=== PATIENT | male | born 1985 | race African-American/Black ===

== ENCOUNTER 2019-06-18 01:38 | Inpatient (IN) | payer OTHER ==
[~2019-06-18] VITALS: Ht 170.2 cm; Wt 80.7 kg
[2019-06-18] VITALS (14 sets, daily range): BP systolic 113–143; BP diastolic 72–88
--- NOTE | 2019-06-18 01:42 | NUR ---
TO BED 4 BIB PARAMEDICS C/O NONRADIATING CP X4HRS MATCHER. PT AAO X4 NO ACUTE DISTRESS NOTED, RESP EVEN AND UNLABORED. SKIN WARM, NONDIAPHORETIC. PLACE PT ON CARDIAC MONITORING, CONTINUOUS POX. PENDING ER MD BOSE.
[2019-06-18] MEDS ORDERED: KETOROLAC TROMETHAMINE INJ 60 MG/2 ML VIAL IM ONE ×2 (02:00→02:01)
--- NOTE | 2019-06-18 02:06 | NUR ---
PT MEDICATED ORDERED.
[2019-06-18 02:39] LABS: CALCIUM, SERUM 8.3 mg/dL (8.5-10.1); CARBON DIOXIDE 28 mmol/L (21-32); CHLORIDE 104 mmol/L (98-107); CREATININE 1.1 mg/dL (0.6-1.3); GLUCOSE 90 mg/dL (74-106); POTASSIUM 4.1 mmol/L (3.5-5.1); SODIUM SERUM 136 mmol/L (136-145); UREA NITROGEN, BLOOD 9 mg/dL (7-18)
[2019-06-18 02:41] LABS: BASOPHILS % (AUTO) 0.7 % (0.0-2.0); EOSINOPHILS % (AUTO) 3.2 % (0.0-6.0); LYMPHOCYTES # (AUTO) 1.6 /CMM (0.8-4.8); LYMPHOCYTES % (AUTO) 26.7 % (20.0-44.0); MEAN CORPUSCULAR HGB CONC 30 g/dl (31.0-36.0); MEAN CORPUSCULAR VOLUME 60 fL (80-96); MONOCYTES # (AUTO) 0.4 /CMM (0.1-1.30); MONOCYTES % (AUTO) 6.2 % (2.0-12.0); NEUTROPHILS # (AUTO) 3.8 /CMM (1.8-8.9); NEUTROPHILS % (AUTO) 63.2 % (43.0-81.0); PLATELET COUNT (AUTO) 369 /CMM (150-450); RED BLOOD CELL COUNT(AUTO) 3.37 MIL/uL (4.5-6.0); WHITE BLOOD COUNT (AUTO) 6.1 K/uL (4.3-11.0)
[2019-06-18 02:42] LABS: HEMATOCRIT 20 % (39-51)
[2019-06-18 02:45] LABS: HEMOGLOBIN 6.1 g/dL (13.5-17.5)
--- NOTE | 2019-06-18 02:45 | NUR ---
NOW PT REPORTS THAT HE HAS BEEN HAVING BLOODY BM FOR MONTHS NOW BUT HE FORGOT TO LET THE DOCTOR KNOW. ER MD AT BEDSIDE TALKING TO PT WITH ADDITIONAL ORDERS RECEIVED.
[2019-06-18 02:57] LABS: EOSINOPHILS % (MANUAL) 4 % (0-4); LYMPHOCYTES % (MANUAL) 28 % (16-48); MONOCYTES % (MANUAL) 6 % (0-11.0); NEUTROPHILS % (MANUAL) 62 (42-76)
[2019-06-18] MEDS ORDERED: IOHEXOL-350 100 ML VIAL IV ONE ×3 (03:02→03:41)
[2019-06-18] MEDS ORDERED: CT SWABBABLE VALVE TRANS SET 1 EA INFUS.SET MC ONE (03:02)
[2019-06-18] MEDS ORDERED: IV NS 0.9% 250 ML IV ONE (03:03)
--- NOTE | 2019-06-18 03:18 | NUR ---
PT TRANSPORTED TO RADIOLOGY FOR CT PULMONARY ANGIOGRAM.
[2019-06-18] MEDS ORDERED: MAG HYDROX/AL HYDROX/SIMETH 30 ML UDC PO PRN (04:00)
[2019-06-18] MEDS ORDERED: MAGNESIUM HYDROXIDE 30 ML UDC PO PRN (04:00)
[2019-06-18] MEDS ORDERED: PANTOPRAZOLE 40 MG VIAL IV SCH (04:00)
[2019-06-18] MEDS ORDERED: ACETAMINOPHEN 325 MG TABLET PO PRN (04:00)
[2019-06-18] MEDS ORDERED: Z GUARD REMEDY 2 OZ OINT TP PRN (04:00)
[2019-06-18] MEDS ORDERED: ONDANSETRON HCL/PF 4 MG/2 ML VIAL IVP PRN (04:00)
--- NOTE | 2019-06-18 04:34 | NUR ---
CT PULMONARY ANGIOGRAM RESULT RECEIVED. SARAH PRITCHETT MADE AWARE.
--- NOTE | 2019-06-18 04:40 | NUR ---
REPORT CALLED TO M/S SHARIF PATTEN. WILL TRANSPORT PT TO ROOM 108
--- NOTE | 2019-06-18 04:45 | NUR ---
RN OPENING NOTES: RECIEVED PT A0 TIMES 4 AMBULATORY. REPORTED TO MD ACTIVE BLEEDING FROM STOOL FOR OVER FOUR WEEKS. WAS RECENTLY DIAGNOSED WITH CHRONS IN DECEMBER ACCORDING TO PT. NO COMPLAINTS OF PAIN. VITAL SIGNS STABLE. PT SATTING WELL ON ROOM AIR. REPORT GIVEN BY ER OF LOW H AND H OF 6.. CONSET SIGNS FOR TWO UNITS OF RBC AND STARTED TRANSFUSION AT 0530. PT CURRENTLY SLEEPING. WILL CONTINUE TO MONITER AND CARRY OUT PLAN OF CARE. BED IN LOCKED LOW POSITION. SAFETY MEASURES IN PLACE.
--- NOTE | 2019-06-18 06:49 | NUR ---
RN CLOSING MED JOSUE NOTES: PT IN BED SLEEPING IN STABLE CONDITION. RBC CURRENTLY RUNNING AT 80 ML/HR. WILL ENDORSE TO AM SHIFT. PROTONIX 0400 NOT GIVEN DUE TO NOT BEING IN STOCK. WILL ENDORSE TO JOHN TO GIVE AND MONITER PT AND CONTINUE PLAN OF CARE. SAFETY. MEASURES IN PLACE. CALL LIGHT WITHIN REACH
--- NOTE | 2019-06-18 07:35 | NUR ---
MS/RN OPENING NOTES RECEIVED PATIENT IN BED RESTING COMFORTABLY. EASILY AROUSABLE. PATIENT IS ALERT AND ORIENTED X3. NO PAIN OR ACUTE DISTRESS AT THIS TIME. RESPIRATION EVEN AND UNLABORED. SKIN IS DRY WARM TO TOUCH. PATIENT NOTED WITH BLOOD INFUSING AT THE MOMENT. PATIENT TOLERATING THE INFUSION WELL. IV ACCESS ON LAC INTACT AND PATENT. NO S/S OF INFILTRATION OR INFECTION. FLUSHING WELL. ALL NEEDS ANTICIPATED. CALL LIGHT WITHIN REACHED. BED LOCKED AND IN LOWEST POSITION. SAFETY MAINTAINED. WILL CONTINUE TO MONITOR.
[2019-06-18] MEDS ORDERED: LAMO200T2 PO (08:01)
[2019-06-18] MEDS: NEXIUM 40 MG VIAL IV SCH ×2 (09:08→20:00)
--- NOTE | 2019-06-18 09:20 | NUR ---
MS/RN NOTES BLOOD TRANSFUSION WAS FINISHED. PATIENT TOLERATED THE INFUSION WELL. NO ADVERSE REACTIONS AT THIS TIME. PATIENT REMAINS IN STABLE CONDITION. WILL CONTINUE TO MONITOR PATIENT CLOSELY.
[2019-06-18 12:03] LABS: HEMOGLOBIN 6.9 g/dL (13.5-17.5)
--- NOTE | 2019-06-18 12:10 | NUR ---
MS/RN NOTES SPOKE TO DR. LAZCANO REGARDING PATIENT. ACCORDING TO DR. LAZCANO HE IS PLANNING TO HAVE HIM GO FOR EGD AND COLONOSCOPY ON FRIDAY. I PROVIDED DR. LAZCANO WITH THE FACESHEET AND INSURANCE INFORMATION ALONG WITH HIS RECENT LAB RESULTS OF H AND H. AWAITING FOR ORDERS.
--- NOTE | 2019-06-18 13:03 | NUR ---
MS/RN NOTES PAGED DR. STEPHEN VIA [employer] PHONE NUMBER.
--- NOTE | 2019-06-18 13:40 | NUR ---
MS/RN NOTES RECEIVED A CALL BACK FROM DR. STEPHEN RELAYED HGB OF 6.9 AND ALSO THE EKG RESULTS DUE TO PATIENT HAVING NON RADIATING CHEST PAIN. ORDERED TO ADMINISTER PRBC. ALSO, INFORMED HIM ABOUT DR. VASQUES PLAN FOR THE PATIENT REGARDING THE EGD AND COLONOSCOPY. PATIENT REMAINS IN STABLE CONDITION. WILL CONTINUE TO MONITOR CLOSELY.
--- NOTE | 2019-06-18 15:25 | NUR ---
MS/RN NOTES STARTED BLOOD TRANSFUSION, VERIFIED WITH ANOTHER RN. WILL CONTINUE TO VISUALLY CHECK PATIENT TO CHECK FOR ANY ADVERSE REACTIONS.
--- NOTE | 2019-06-18 15:26 | NUR ---
MS/RN NOTES SPOKE TO CASE MANAGEMENT REGARDING DR. STEPHEN CONCERN ABOUT THE EGD AND COLONOSCOPY THAT IS BEING SCHEDULED BY DR. LAZCANO ON FRIDAY. ACCORDING TO CASE MANAGEMENT THEY WILL FOLLOW UP.
--- NOTE | 2019-06-18 18:38 | NUR ---
MS/RN NOTES PATIENT REMAINED IN STABLE CONDITION THROUGHOUT THE SHIFT. PROVIDED SAFETY AND COMFORT. BLOOD TRANSFUSION WAS FINISHED. SPOKE TO DR. STEPHEN AND HE ORDERED TO DO ANOTHER H AND H STAT. ALL ORDERS NOTED AND CARRIED OUT. NO PAIN OR ACUTE DISTRESS AT THIS TIME. WILL CONTINUE TO MONITOR CLOSELY.
--- NOTE | 2019-06-18 19:35 | NUR ---
MS/RN CLOSING NOTES PATIENT REMAINED IN STABLE CONDITION THROUGHOUT THE SHIFT. PROVIDED SAFETY AND COMFORT. NO PAIN OR ACUTE DISTRESS AT THIS TIME. RESPIRATION EVEN AND UNLABORED. SKIN IS DRY WARM TO TOUCH. IV ACCESS ON LAC INTACT AND PATENT. FLUSHING WELL. PATIENT WAS SEEN AND EVALUATED BY DR. LAZCANO WITH ORDERS TO DO EGD AND COLONOSCOPY ON Friday06/21/19. ALSO, PATIENT NEEDS TO BE NPO FRIDAY MIDNIGHT WITH COLON PREP. ALL NEEDS ANTICIPATED. CALL LIGHT WITHIN REACHED. WILL CONTINUE TO MONITOR. ENDORSED TO PM NURSE CELWYN REGARDING THE PROCEDURES.
[2019-06-18 20:15] LABS: HEMOGLOBIN 8.1 g/dL (13.5-17.5)
[2019-06-18] MEDS: IV NS 0.9% 1,000 ML IV PRN (21:02)
[2019-06-19 04:15] VITALS: BP 140/80
[2019-06-19 07:03] LABS: CALCIUM, SERUM 8.7 mg/dL (8.5-10.1); CREATININE 1.1 mg/dL (0.6-1.3); MAGNESIUM 1.9 mg/dL (1.8-2.4); PHOSPHORUS 3.9 mg/dL (2.5-4.9); POTASSIUM 3.9 mmol/L (3.5-5.1)
[2019-06-19 07:06] LABS: BASOPHILS % (AUTO) 0.4 % (0.0-2.0); EOSINOPHILS % (AUTO) 3.8 % (0.0-6.0); HEMATOCRIT 28 % (39-51); HEMOGLOBIN 8.7 g/dL (13.5-17.5); LYMPHOCYTES # (AUTO) 1.3 /CMM (0.8-4.8); LYMPHOCYTES % (AUTO) 26.2 % (20.0-44.0); MEAN CORPUSCULAR HGB CONC 31 g/dl (31.0-36.0); MEAN CORPUSCULAR VOLUME 64 fL (80-96); MONOCYTES # (AUTO) 0.6 /CMM (0.1-1.30); NEUTROPHILS # (AUTO) 2.8 /CMM (1.8-8.9); NEUTROPHILS % (AUTO) 57.6 % (43.0-81.0); PLATELET COUNT (AUTO) 383 /CMM (150-450); RED BLOOD CELL COUNT(AUTO) 4.37 MIL/uL (4.5-6.0); WHITE BLOOD COUNT (AUTO) 4.8 K/uL (4.3-11.0)
--- NOTE | 2019-06-19 07:07 | NUR ---
RN NOTES AWAKE, ALERT AND ORIENTED. VERBALLY ABLE TO COMMUNICATE NEEDS. AMBULATORY. IN NO APPARENT DISTRESS, BREATHING EVEN AND UNLABORED TOLERATING ROOM AIR WELL. NO COMPLAINT OF PAIN OR DISCOMFORT. NOTED WITH MODERATE AMOUNT OF BLOOD IN STOOL. FOR EGD AND COLONOSCOPY ON FRIDAY, GOLYTELY TO START ON FRIDAY. KEPT CLEAN AND DRY. WILL ENDORSE TO NEXT SHIFT FOR CONTINUITY OF CARE.
[2019-06-19 08:00] VITALS: BP 137/74
[2019-06-19] MEDS: NEXIUM 40 MG VIAL IV SCH ×2 (09:38→20:34)
[2019-06-19] MEDS ORDERED: LIDOCAINE 1% INJ 50 ML MDV IJ STA (12:20)
[2019-06-19 16:00] VITALS: BP 122/69
[2019-06-19] MEDS: IV NS 0.9% 1,000 ML IV PRN (16:08)
[2019-06-19 16:15] VITALS: BP 137/74
[2019-06-19] MEDS: LamoTRIgine 100 MG TABLET PO SCH ×2 (16:33→20:37)
--- NOTE | 2019-06-19 19:29 | NUR ---
ms rn end of shift notes pt stable, visitors at bedside. still with c/o blood in stool. hgb stable. on regular diet. will endorse to pm nurse for stephanie.
[2019-06-19 23:24] VITALS: BP 132/81
[2019-06-20] VITALS (8 sets, daily range): BP systolic 116–145; BP diastolic 68–84
--- NOTE | 2019-06-20 04:17 | NUR ---
RECIEVED PT FROM [facility] WILL CONTINUE TO MONITOR.
--- NOTE | 2019-06-20 06:47 | NUR ---
MS/RN CLOSING NOTES: PATIENT REMAINED IN STABLE CONDITION THROUGHOUT THE SHIFT. PROVIDED SAFETY AND COMFORT. BLOOD TRANSFUSION WAS FINISHED. SPOKE TO DR. STEPHEN AND HE ORDERED TO DO ANOTHER H AND H STAT. REPORTED DIAHERRA TIMES THREE.SAFETY PRECATIONS IN PLACE. WILL ENDORSE TO AM SHIFT. Addendum: 06/20/19 at 0718 by BRANT BAINS RN /RN CLOSING NOTES: PATIENT REMAINED IN STABLE CONDITION THROUGHOUT THE SHIFT. PROVIDED SAFETY AND COMFORT. NPO AT MIDNIGHT FRIDAY FOR EGD AND COLONOSCOPY ON FRIDAY, CONSENT PEND. GOLTLY START 06/20. CT PULMONARY ANGIOGRAM PENDING. REPORTED DIAHERRA TIMES THREE.SAFETY PRECATIONS IN PLACE. WILL ENDORSE TO AM SHIFT
[2019-06-20 07:10] LABS: BASOPHILS % (AUTO) 0.4 % (0.0-2.0); EOSINOPHILS % (AUTO) 3.3 % (0.0-6.0); HEMATOCRIT 26 % (39-51); HEMOGLOBIN 8.1 g/dL (13.5-17.5); LYMPHOCYTES # (AUTO) 1.2 /CMM (0.8-4.8); LYMPHOCYTES % (AUTO) 22.4 % (20.0-44.0); MEAN CORPUSCULAR HGB CONC 31 g/dl (31.0-36.0); MEAN CORPUSCULAR VOLUME 64 fL (80-96); MONOCYTES # (AUTO) 0.7 /CMM (0.1-1.30); MONOCYTES % (AUTO) 12.4 % (2.0-12.0); NEUTROPHILS # (AUTO) 3.4 /CMM (1.8-8.9); NEUTROPHILS % (AUTO) 61.5 % (43.0-81.0); PLATELET COUNT (AUTO) 372 /CMM (150-450); RED BLOOD CELL COUNT(AUTO) 4.07 MIL/uL (4.5-6.0); WHITE BLOOD COUNT (AUTO) 5.5 K/uL (4.3-11.0)
[2019-06-20 07:12] LABS: CALCIUM, SERUM 8.1 mg/dL (8.5-10.1); CREATININE 1.1 mg/dL (0.6-1.3); POTASSIUM 3.8 mmol/L (3.5-5.1)
--- NOTE | 2019-06-20 08:00 | NUR ---
RN NOTES SEEN PATIENT IN THE BED A/O X4. PATIENT HAS NO ACUTE RESPIRATORY DISTRESS, V/S TAKEN STABLE, PATIENT AMBULATORY, SELF CARE. PATIENT FREE OF SEIZURE PRECAUTION. 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 WAS COMPLAINING OF PAIN IN LOWER BACK. NEEDS ATTENDED AND ANTICIPATED. CALL LIGHT WITHIN TO REACH, CONTINUED MONITORING.
[2019-06-20] MEDS: LamoTRIgine 100 MG TABLET PO SCH ×2 (08:54→22:49)
[2019-06-20] MEDS: HYDROCODONE/APAP 5/325MG 1 EACH TABLET PO PRN ×2 (08:54→13:33)
--- NOTE | 2019-06-20 08:54 | NUR ---
RN NOTES ADMINISTERED NARCO 5/325 MG PO PRN FOR LOWER BACK PAIN 07/10 PER PATIENT REQUEST V/S TAKEN BP -129/68, P-73. ALSO ADMINISTERED SCHEDULED MEDICATION. CALL LIGHT WITHIN TO REACH, CONTINUED MONITORING.
[2019-06-20 09:09] LABS: EOSINOPHILS % (MANUAL) 6 % (0-4); LYMPHOCYTES % (MANUAL) 24 % (16-48); MONOCYTES % (MANUAL) 11 % (0-11.0); NEUTROPHILS % (MANUAL) 59 (42-76)
[2019-06-20] MEDS: NEXIUM 40 MG VIAL IV SCH ×2 (09:13→22:57)
--- NOTE | 2019-06-20 13:33 | NUR ---
RN NOTES ADMINISTERED NARCO 5/325 MG PO PRN, AND ZOFRAN 4 MG/ML IV PUSH FOR NAUSEA, V/S TAKEN BP-133/76, P-71. FRIEND NEXT TO THE BED. CONTINUED MONITORING.
--- NOTE | 2019-06-20 18:30 | NUR ---
RN NOTES PATIENT STABLE MEDICATION WERE ADMINISTERED FOR PAIN, AND NAUSEA EFFECTIVE, PATIENT TAKE A SHOWER, PATIENT AMBULATORY SELF CARE. CALL LIGHT WITHIN TO REACH, PATIENT SIGN CONSENT FORM. CALL LIGHT WITHIN TO REACH. FAMILY NEXT TO THE BED. ENDORSED ONCOMING NURSE FOLLOW PLAN OF CARE.
[2019-06-20] MEDS ORDERED: PEG 3350/NA SULF,BICARB,CL/KCL 4,000 ML BOTTLE PO ONE (20:00)
[2019-06-21 04:00] VITALS: BP 117/60
[2019-06-21] MEDS: IV NS 0.9% 1,000 ML IV PRN ×2 (05:41→20:39)
--- NOTE | 2019-06-21 06:05 | NUR ---
RN NOTES ALERT AND ORIENTED, AMBULATORY, VERBALLY ABLE TO COMMUNICATE NEEDS. NO COMPLAINT OF PAIN OR DISCOMFORT. IN NO APPARENT DISTRESS, BREATHING EVEN AND UNLABORED. ROOM AIR TOLERATED WELL. NPO MIDNIGHT FOR EGD AND COLONOSCOPY IN AM. STARTED TO DRINK GOLYTELY AT 1999, PATIENT IS COMPLAINING OF BLURRED VISION AFTER DRINKING ABOUT 2L OF GOLYTELY. CONSENT SIGNED, IN THE CHART. KEPT CLEAN AND DRY. WILL ENDORSE TO AM SHIFT FOR CONTINUITY OF CARE. Addendum: 06/21/19 at 0631 by MAYRA BALLARD RN BOWEL MOVEMENT X 5, STILL WITH SCANT BLEEDING NOTED.
[2019-06-21 06:35] LABS: BASOPHILS # (AUTO) 0.1 /CMM (0.0-0.2); BASOPHILS % (AUTO) 1.6 % (0.0-2.0); EOSINOPHILS % (AUTO) 4.8 % (0.0-6.0); HEMATOCRIT 28 % (39-51); HEMOGLOBIN 8.5 g/dL (13.5-17.5); LYMPHOCYTES # (AUTO) 1.2 /CMM (0.8-4.8); MEAN CORPUSCULAR HGB CONC 30 g/dl (31.0-36.0); MEAN CORPUSCULAR VOLUME 64 fL (80-96); MONOCYTES # (AUTO) 0.6 /CMM (0.1-1.30); MONOCYTES % (AUTO) 13.8 % (2.0-12.0); NEUTROPHILS # (AUTO) 2.3 /CMM (1.8-8.9); NEUTROPHILS % (AUTO) 52.8 % (43.0-81.0); PLATELET COUNT (AUTO) 383 /CMM (150-450); RED BLOOD CELL COUNT(AUTO) 4.35 MIL/uL (4.5-6.0); WHITE BLOOD COUNT (AUTO) 4.4 K/uL (4.3-11.0)
[2019-06-21 06:57] LABS: ALBUMIN 2.7 g/dL (3.4-5.0); BILIRUBIN,TOTAL 0.2 mg/dL (0.2-1.0); CALCIUM, SERUM 8.8 mg/dL (8.5-10.1); CREATININE 1.2 mg/dL (0.6-1.3); PHOSPHORUS 4.2 mg/dL (2.5-4.9); POTASSIUM 3.5 mmol/L (3.5-5.1); TOTAL PROTEIN, SERUM 8.3 g/dL (6.4-8.2)
--- NOTE | 2019-06-21 07:30 | NUR ---
RN MS NOTES Received patient on room air, no sob noted, patient denies pain at this time. No discomfort stated by the patient. Patient remains a/o x4, EGD later on. Bed at the lowest setting, call light within reach.
[2019-06-21 08:00] VITALS: BP 128/73
[2019-06-21] MEDS: LamoTRIgine 100 MG TABLET PO SCH ×2 (08:37→20:09)
[2019-06-21] MEDS: NEXIUM 40 MG VIAL IV SCH ×2 (08:37→20:09)
[2019-06-21 08:39] LABS: BAND % (MANUAL) 1 % (0.0-5.0); BASOPHILS % (MANUAL) 1 % (0.0-2.0); EOSINOPHILS % (MANUAL) 5 % (0-4); LYMPHOCYTES % (MANUAL) 28 % (16-48); MONOCYTES % (MANUAL) 13 % (0-11.0); NEUTROPHILS % (MANUAL) 52 (42-76)
--- NOTE | 2019-06-21 09:54 | NUR ---
RN MS NOTES Patient taken to surgery at this time
[2019-06-21 16:00] VITALS: BP 128/71
--- NOTE | 2019-06-21 18:16 | NUR ---
RN MS CLOSING NOTES Patient remains on room air, no sob noted, patient remains a/o x4. Ambulatory and BRP with good gait. GIOVANNA midline with NS @ 75mL per hour. Flowing and unobstructed. Patient tolerating soft diet at this time. Patient denies pain at this time. Bed at the lowest setting, call light within reach. Will give report to NOC RN for EUGENIE bedside.
--- NOTE | 2019-06-21 19:35 | NUR ---
RN OPENING NOTES RECEIVED PATIENT AWAKE, RESTING COMFORTABLY IN BED. PATIENT IS A/O X 4. PATIENT ABLE TO STATE NEEDS. GIOVANNA MIDLINE WITH NS @75 ML PER HOUR. NO SIGNS OF INFILTRATION OR OBSTRUCTION NOTED. SAFETY PRECAUTIONS IMPLEMENTED; CALL LIGHT WITHIN REACH, BED LOWEST POSITION, BED LOCKED, SIDE RAILS UP X2. WILL CONTINUE TO MONITOR PATIENT THROUGHOUT THE SHIFT.
[2019-06-21 20:00] VITALS: BP 134/76
[2019-06-21] MEDS: HYDROCODONE/APAP 5/325MG 1 EACH TABLET PO PRN (20:12)
[2019-06-22 04:00] VITALS: BP 122/79
[2019-06-22 06:25] LABS: BASOPHILS % (AUTO) 0.4 % (0.0-2.0); HEMATOCRIT 26 % (39-51); HEMOGLOBIN 7.9 g/dL (13.5-17.5); LYMPHOCYTES % (AUTO) 24.7 % (20.0-44.0); MEAN CORPUSCULAR HGB CONC 31 g/dl (31.0-36.0); MEAN CORPUSCULAR VOLUME 64 fL (80-96); MONOCYTES # (AUTO) 0.6 /CMM (0.1-1.30); MONOCYTES % (AUTO) 13.6 % (2.0-12.0); NEUTROPHILS # (AUTO) 2.3 /CMM (1.8-8.9); NEUTROPHILS % (AUTO) 57.3 % (43.0-81.0); PLATELET COUNT (AUTO) 325 /CMM (150-450); RED BLOOD CELL COUNT(AUTO) 3.99 MIL/uL (4.5-6.0); WHITE BLOOD COUNT (AUTO) 4.1 K/uL (4.3-11.0)
--- NOTE | 2019-06-22 06:42 | NUR ---
RN CLOSING NOTES PATIENT IS ALERT AND ORIENTED X 4, ABLE TO COMMUNICATE NEEDS CLEARLY. NO COMPLAINT OF PAIN OR DISCOMFORT AFTER NORCO GIVEN AT 2012. NO SIGNS OF RESPIRATORY DISTRESS. DENIES SHORTNESS OF BREATH. PATIENT TOLERATES ROOM AIR. PATIENT KEPT CLEAN AND DRY. WILL ENDORSE CARE TO AM NURSE FOR CONTINUITY OF CARE. SAFETY PRECAUTIONS IMPLEMENTED; CALL LIGHT WITHIN EASY REACH, BED IN LOWEST POSITION, BED LOCKED, SIDE RAILS UP X2.
[2019-06-22 06:45] LABS: CALCIUM, SERUM 8.4 mg/dL (8.5-10.1); MAGNESIUM 2.1 mg/dL (1.8-2.4); PHOSPHORUS 3.8 mg/dL (2.5-4.9)
--- NOTE | 2019-06-22 07:30 | NUR ---
RN AM SHIFT NOTE PATIENT ALERT ORITNED AND COOPERATIVE. VITALS WNL NO COMPLAINTS OF PAIN. REPORTS BOWELS HAVE NO S/S OF BLOOD OR MUCOUS, NO CURRENT ABD PAIN. EATING WELL AND DRIKING WELL. ALL SAFETY MEASURE IN PLACE AT THIS TIME. CONTIUE TO MONITOR.
[2019-06-22 08:00] VITALS: BP 131/71
[2019-06-22] MEDS: NEXIUM 40 MG VIAL IV SCH (08:44)
[2019-06-22] MEDS: LamoTRIgine 100 MG TABLET PO SCH (08:44)
[2019-06-22 09:40] VITALS: BP 131/71
[2019-06-22 10:18] LABS: EOSINOPHILS % (MANUAL) 6 % (0-4); LYMPHOCYTES % (MANUAL) 21 % (16-48); MONOCYTES % (MANUAL) 9 % (0-11.0); NEUTROPHILS % (MANUAL) 64 (42-76)
--- NOTE | 2019-06-22 13:30 | NUR ---
MICROWAVE TECHNICIAN NOTE MD DISCHARGED PATIENT. RN ENCOURAGED FOLLOW UP WITH PRIMARY CARE AND GI GAVE PATIENT PERSCIRPTION FROM MD. IV DISCONECRTED AND COVERED WITH DRESSING. PATIENT SHOWERED, ALL VITALS WNL. PATIENT NO COMPLAINTS OF PAIN. PAIN WAS GIVEN INFORMATION REGARDING VISIT. AMBULATORY AND WALKED TO THE FRONT LOBBY FRIEND TO PICK HIM UP IN THE FRONT, GOING HOME.
[2019-06-22] MEDS ORDERED: PANT40TA2 PO (13:35)
== END 2019-06-22 14:50 | disposition home or self-care (01) | DRG 245 ==
LOC: ER 01:38 → TELE1 03:37 → MEDSG1 04:42
PROVIDERS: ADMIT Family Medicine; ATTEND Nurse Practitioner Acute Care
PROC: 30233N1 Transfusion of Nonautologous Red Blood Cells into Peripheral Vein, Percutaneous Approach (ICD-10-PCS; principal; 2019-06-18)
PROC: 0DBN8ZX Excision of Sigmoid Colon, Via Natural or Artificial Opening Endoscopic, Diagnostic (ICD-10-PCS; principal; 2019-06-18)
PROC: 05HC33Z Insertion of Infusion Device into Left Basilic Vein, Percutaneous Approach (ICD-10-PCS; 2019-06-19)
PROC: 0DB78ZX Excision of Stomach, Pylorus, Via Natural or Artificial Opening Endoscopic, Diagnostic (ICD-10-PCS; 2019-06-21)
DX: K50.111 Crohn's disease of large intestine with rectal bleeding (principal); E43 Unspecified severe protein-calorie malnutrition; D62 Acute posthemorrhagic anemia; E88.09 Other disorders of plasma-protein metabolism, not elsewhere classified; D50.9 Iron deficiency anemia, unspecified; R07.9 Chest pain, unspecified; G40.909 Epilepsy, unspecified, not intractable, without status epilepticus; K44.9 Diaphragmatic hernia without obstruction or gangrene; Z68.27 Body mass index [BMI] 27.0-27.9, adult; K29.70 Gastritis, unspecified, without bleeding
CPT/HCPCS: 36415; 71045-TC; 80048-TC; 80053-TC; 83540-TC; 83735-TC; 84100-TC; 84484-TC; 85025-TC; 85027-TC; 85378-TC; 85730-TC; 86850-TC; 86921-TC; 87081-TC; 88305-TC; 88313-TC; 88342; C9113; G0378; J1885; J2405; J2704; J3490; J7030; J7040; J7050; P9016-BL; Q9967

== ENCOUNTER 2019-07-28 14:57 | Emergency (ER) | payer OTHER ==
[~2019-07-28 14:57] MED LIST: LAMO200T2 PO; PANT40TA2 PO
[2019-07-28] MEDS ORDERED: IV NS 0.9% 1,000 ML BAG IV ONE (16:30)
[2019-07-28] MEDS ORDERED: ONDANSETRON HCL/PF 4 MG/2 ML VIAL IVP ONE (16:30)
[2019-07-28] MEDS ORDERED: MORPHINE SULFATE INJ 2 MG/ML DISP.SYRIN IV ONE (16:30)
[2019-07-28] MEDS ORDERED: ONDANSETRON HCL/PF 4 MG/2 ML VIAL ONE (16:31)
[2019-07-28] MEDS ORDERED: MORPHINE SULFATE INJ 4 MG/ML DISP.SYRIN ONE (16:31)
== END 2019-07-28 18:10 | disposition home or self-care (01) ==
DX: R10.84 Generalized abdominal pain (principal); R19.7 Diarrhea, unspecified; K50.90 Crohn's disease, unspecified, without complications; D64.9 Anemia, unspecified; G40.909 Epilepsy, unspecified, not intractable, without status epilepticus
CPT/HCPCS: 36415; 80048; 80076; 81001; 83690; 85025; 96361; 96374; 96375; 99283; J2270; J2405; J7030

== ENCOUNTER 2019-08-05 14:12 | Emergency (ER) | payer OTHER ==
[~2019-08-05] VITALS: Ht 172.7 cm; Wt 80.3 kg
[~2019-08-05 14:12] MED LIST changes: -PANT40TA2 PO
--- NOTE | 2019-08-05 14:40 | NUR ---
CALLED TO TRIAGE,NO ANSWER
--- NOTE | 2019-08-05 15:03 | NUR ---
CALLED TO TRIAGE,NO ANSWER
[2019-08-05 15:11] VITALS: BP 133/72
[2019-08-05] MEDS ORDERED: KETOROLAC TROMETHAMINE INJ 30 MG/ML VIAL ONE (16:07)
[2019-08-05] MEDS: KETOROLAC TROMETHAMINE INJ 60 MG/2 ML VIAL IM ONE (16:21)
[2019-08-05 16:26] LABS: BASOPHILS # (AUTO) 0.1 /CMM (0.0-0.2); BASOPHILS % (AUTO) 0.8 % (0.0-2.0); EOSINOPHILS % (AUTO) 2.9 % (0.0-6.0); HEMATOCRIT 28 % (39-51); HEMOGLOBIN 8.4 g/dL (13.5-17.5); LYMPHOCYTES # (AUTO) 1.6 /CMM (0.8-4.8); LYMPHOCYTES % (AUTO) 20.5 % (20.0-44.0); MEAN CORPUSCULAR HGB CONC 30 g/dl (31.0-36.0); MEAN CORPUSCULAR VOLUME 63 fL (80-96); MONOCYTES # (AUTO) 0.8 /CMM (0.1-1.30); MONOCYTES % (AUTO) 9.5 % (2.0-12.0); NEUTROPHILS # (AUTO) 5.3 /CMM (1.8-8.9); NEUTROPHILS % (AUTO) 66.3 % (43.0-81.0); PLATELET COUNT (AUTO) 419 /CMM (150-450); RED BLOOD CELL COUNT(AUTO) 4.42 MIL/uL (4.5-6.0)
[2019-08-05 16:27] LABS: CALCIUM, SERUM 8.8 mg/dL (8.5-10.1)
[2019-08-05 17:11] LABS: NEUTROPHILS % (MANUAL) 73 (42-76)
[2019-08-05 17:12] LABS: EOSINOPHILS % (MANUAL) 2 % (0-4); LYMPHOCYTES % (MANUAL) 19 % (16-48); MONOCYTES % (MANUAL) 6 % (0-11.0)
== END 2019-08-05 18:40 | disposition home or self-care (01) ==
LOC: ER 14:16
DX: M62.830 Muscle spasm of back (principal); R19.7 Diarrhea, unspecified; K58.9 Irritable bowel syndrome, unspecified; D64.9 Anemia, unspecified; G40.909 Epilepsy, unspecified, not intractable, without status epilepticus
CPT/HCPCS: 36415; 80048; 85025; 96372; 99283; J1885

== ENCOUNTER 2019-12-21 07:19 | Emergency (ER) | payer OTHER ==
[~2019-12-21] VITALS: Ht 175.3 cm; Wt 80.3 kg
--- NOTE | 2019-12-21 07:30 | NUR ---
assume pt care. pt c/o generalized body aches and weakness x 1 week. was seen in ed last friday for same reason. pt states not feeling better. hx of anemia and crohn's placed on monitor. vss. awaiting md marquez.
--- NOTE | 2019-12-21 07:32 | NUR ---
dr edmond at bedside for eval.
[2019-12-21 07:56] LABS: HEMATOCRIT 26 % (39-51); HEMOGLOBIN 7.7 g/dL (13.5-17.5); MEAN CORPUSCULAR HGB CONC 29 g/dl (31.0-36.0); MEAN CORPUSCULAR VOLUME 60 fL (80-96); PLATELET COUNT (AUTO) 602 /CMM (150-450); RED BLOOD CELL COUNT(AUTO) 4.39 MIL/uL (4.5-6.0); WHITE BLOOD COUNT (AUTO) 8.4 K/uL (4.3-11.0)
[2019-12-21 08:11] LABS: ALANINE AMINOTRANSFERASE 19 U/L (12-78); ALBUMIN 2.3 g/dL (3.4-5.0); ALKALINE PHOSPHATASE 58 U/L (46-116); ASPARTATE AMINOTRANSFERASE 13 U/L (15-37); BILIRUBIN,DIRECT 0.1 mg/dL (0.0-0.2); BILIRUBIN,TOTAL 0.1 mg/dL (0.2-1.0); CALCIUM, SERUM 8.7 mg/dL (8.5-10.1); CARBON DIOXIDE 29 mmol/L (21-32); CHLORIDE 103 mmol/L (98-107); CREATININE 1.5 mg/dL (0.6-1.3); GLUCOSE 103 mg/dL (74-106); LIPASE 137 U/L (73-393); POTASSIUM 3.7 mmol/L (3.5-5.1); SODIUM SERUM 140 mmol/L (136-145); TOTAL PROTEIN, SERUM 8.2 g/dL (6.4-8.2); UREA NITROGEN, BLOOD 10 mg/dL (7-18)
[2019-12-21 08:16] LABS: BAND % (MANUAL) 1 % (0.0-5.0); EOSINOPHILS % (MANUAL) 2 % (0-4); LYMPHOCYTES % (MANUAL) 21 % (16-48); MONOCYTES % (MANUAL) 8 % (0-11.0); NEUTROPHILS % (MANUAL) 68 (42-76)
[2019-12-21 08:24] LABS: APPEARANCE,URINE Clear (CLEAR); BACTERIA,URINE Few /HPF (None Seen); BILIRUBIN,URINE Negative (NEGATIVE); BLOOD, URINE Moderate Ery/uL (NEGATIVE); COLOR,URINE Yellow (YELLOW); KETONES,URINE Negative (NEGATIVE); LEUKOCYTE ESTERASE ,URINE Moderate (NEGATIVE); NITRITE, URINE Negative (NEGATIVE); PROTEIN,URINE 30 mg/dl (NEGATIVE); UGLUCOSE Negative (NEGATIVE); UROBILINOGEN,URINE 0.2 EU/dL (0.2)
[2019-12-21 08:25] LABS: SQUAMOUS EPITHELIAL CELL,UR Rare /HPF (None Seen)
[2019-12-21] MEDS ORDERED: ACETAMINOPHEN ES 500 MG TABLET ONE (08:47)
[2019-12-21] MEDS ORDERED: ACETAMINOPHEN ES 500 MG TABLET PO ONE ×2 (09:00)
--- NOTE | 2019-12-21 09:09 | NUR ---
2nd tylenol is double order
[2019-12-21 10:54] VITALS: BP 121/70
--- NOTE | 2019-12-21 11:07 | NUR ---
Received a call from Alma from [facility] and clinicals given and will call back for MD to MD report.
--- NOTE | 2019-12-21 11:26 | NUR ---
DR TSANG SPEAKING WITH DR STREET
--- NOTE | 2019-12-21 11:44 | NUR ---
PER LILIAN MCFARLANE, PUTTING INBED REQUEST AT [facility] AND WILL CALL BACK WITH UPDATE
--- NOTE | 2019-12-21 12:30 | NUR ---
TRANSFER INFO: PT GOING TO [facility] ([facility] ACCEPTED BY DR TSANG, DIRECT ADMIT TO ROOM 2259, RN FOR REPORT [phone], ETA TO FOLLOW
--- NOTE | 2019-12-21 12:36 | NUR ---
report given to dawn garcia. awaiting transfer to floor.
--- NOTE | 2019-12-21 12:48 | NUR ---
[facility] ETA 1330 TRIP#[id number]
--- NOTE | 2019-12-21 14:07 | NUR ---
tranported to [facility] via ambulance. stable condition.
== END 2019-12-21 14:09 | disposition short-term general hospital (02) ==
LOC: ER 07:19
DX: D64.9 Anemia, unspecified (principal); K50.90 Crohn's disease, unspecified, without complications; G40.909 Epilepsy, unspecified, not intractable, without status epilepticus; Z79.899 Other long term (current) drug therapy
CPT/HCPCS: 36415; 71045-TC; 80048-TC; 80076-TC; 81000-TC; 83690-TC; 84484-TC; 85025-TC; 87086-TC

== ENCOUNTER 2020-06-25 04:22 | Inpatient (IN) | payer OTHER ==
[~2020-06-25] VITALS: Ht 172.7 cm; Wt 70.3 kg
--- NOTE | 2020-06-25 04:46 | NUR ---
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 PATIENT STATES HE HAS NEVER HAD THIS SENSATION BEFORE. PATIENT STATES THAT HE HAD SOME [place] FRIES, NO SPICY FOOD. PATIENT IS AAOX4. NO SOB. BREATHING EVENLY AND UNLABORED ON ROOM AIR. CONNECTED TO MONITOR.
[2020-06-25 05:03] LABS: HEMATOCRIT 25 % (39-51); HEMOGLOBIN 7.1 g/dL (13.5-17.5); MEAN CORPUSCULAR HGB CONC 29 g/dl (31.0-36.0); MEAN CORPUSCULAR VOLUME 59 fL (80-96); PLATELET COUNT (AUTO) 434 /CMM (150-450); RED BLOOD CELL COUNT(AUTO) 4.18 MIL/uL (4.5-6.0); WHITE BLOOD COUNT (AUTO) 7.2 K/uL (4.3-11.0)
[2020-06-25 05:13] LABS: CARBON DIOXIDE 30 mmol/L (21-32); CHLORIDE 102 mmol/L (98-107); CREATININE 1.2 mg/dL (0.6-1.3); GLUCOSE 123 mg/dL (74-106); POTASSIUM 3.7 mmol/L (3.5-5.1); SODIUM SERUM 138 mmol/L (136-145); UREA NITROGEN, BLOOD 10 mg/dL (7-18)
[2020-06-25] MEDS ORDERED: IBUPROFEN 400 MG TABLET ONE (05:22)
[2020-06-25] MEDS ORDERED: IBUPROFEN 400 MG TABLET PO ONE (05:30)
[2020-06-25 05:47] LABS: EOSINOPHILS % (MANUAL) 1 % (0-4); LYMPHOCYTES % (MANUAL) 27 % (16-48); MONOCYTES % (MANUAL) 6 % (0-11.0); NEUTROPHILS % (MANUAL) 66 (42-76)
--- NOTE | 2020-06-25 06:19 | NUR ---
PATIENT AMBULATED WITH A STEADY GAIT TO THE RESTROOM.
--- NOTE | 2020-06-25 06:51 | NUR ---
COVID SWAB COLLECTED AND SENT TO LAB.
--- NOTE | 2020-06-25 08:03 | NUR ---
COVID RESULT NEG. (-)
[2020-06-25] MEDS ORDERED: MESA1.2T3 PO (08:29)
--- NOTE | 2020-06-25 09:03 | NUR ---
REPORT GIVEN TO RN NELY FOR EUGENIE.
--- NOTE | 2020-06-25 09:03 | NUR ---
REPORT GIVEN TO RN NELY FOR EUGENIE.
--- NOTE | 2020-06-25 09:15 | NUR ---
BENJI HORTON DNP AT BEDSIDE FOR EVAL.
[2020-06-25] MEDS ORDERED: MORPHINE SULFATE INJ 2 MG/ML DISP.SYRIN IV PRN (09:30)
[2020-06-25] MEDS ORDERED: ONDANSETRON HCL/PF 4 MG/2 ML VIAL IVP PRN (09:30)
[2020-06-25] MEDS ORDERED: MAG HYDROX/AL HYDROX/SIMETH 30 ML UDC PO PRN (09:30)
[2020-06-25] MEDS ORDERED: ZOLPIDEM TARTRATE 5 MG TABLET PO PRN (09:30)
[2020-06-25] MEDS ORDERED: Z GUARD REMEDY 2 OZ OINT TP PRN (09:30)
[2020-06-25] MEDS ORDERED: MAGNESIUM HYDROXIDE 30 ML UDC PO PRN (09:30)
[2020-06-25] MEDS ORDERED: ACETAMINOPHEN 325 MG TABLET PO PRN (09:30)
[2020-06-25 09:58] LABS: IRON, SERUM 16 ug/dl (50-175); TOTAL IRON BINDING CAPACITY 219 ug/dl (250-450)
[2020-06-25] MEDS: IV NS 0.9% 1,000 ML IV PRN (09:59)
[2020-06-25] MEDS: PANTOPRAZOLE 40 MG VIAL IV SCH (09:59)
[2020-06-25] MEDS ORDERED: HOME MED MISCELLANEOUS XX SCH (10:00)
--- NOTE | 2020-06-25 10:14 | NUR ---
rn notes patient states that he cannot provide Mezalomine at this time.
[2020-06-25 10:18] LABS: FERRITIN 17 ng/mL (8-388)
[2020-06-25 16:00] VITALS: BP 122/63
--- NOTE | 2020-06-25 17:43 | NUR ---
rn notes patient remains on room air, no sob noted, patient states that his pain is under control. R FA 18, NS @ 75 ml per hour. 1 morphine 4 mg given. Hemoglobin of 7.1 and MD is aware. Patient is comfortable. Clear liquid diet. bed at the lowest setting, call light within reach, side rails up x2.
[2020-06-25 20:00] VITALS: BP 134/66
--- NOTE | 2020-06-25 20:00 | NUR ---
MS RN OPENING NOTE: Received patient in bed resting comfortably. Patient denies pain or discomfort. Patient on room air. Breathing unlabored and equal. Shows no signs of distress or SOB. IV access on right forearm 18 gauge. Flushes well, patent, no redness, or infiltration. Safety measures in place. Bed is in lowest position, side rails x2 are up, and call light is within reach. Will continue care of plan and monitor.
[2020-06-25 20:20] VITALS: BP 134/66
[2020-06-25] MEDS: LamoTRIgine 100 MG TABLET PO SCH (21:27)
--- NOTE | 2020-06-25 23:30 | NUR ---
MS RN NOTE: Dr. Salcido ordered 1 unit PRBC for Hgb 7.1. Read back order and carried out.
[2020-06-25 23:45] VITALS: BP 132/74
--- NOTE | 2020-06-25 23:57 | NUR ---
MS RN NOTE: Administered [address] Omari PRITCHETT order. Started at 2357. Pre transfusion vitals 2345 - Temp 98.5, HR 74, Resp 18 BP 132/74, Pain 0 First 15 min 0012 - Temp 98.5, HR 78, Resp 18, BP 141/80, Pain 0 30 minute vital 0027 - Temp 98.5, HR 73, Resp 18, BP 134/74, Pain 0 1 hour vital 0057 - Temp 98.5, HR 74, Resp 18, BP 139/84, Pain 0 Completed on 06/26/20 @ 0305. Patient tolerated blood transfusion well. No adverse effects noted. Addendum: 06/26/20 at 0346 by ONEIDA REYNOLDS RN 282mL
[2020-06-26] MEDS: IV NS 0.9% 1,000 ML IV PRN (05:51)
--- NOTE | 2020-06-26 06:30 | NUR ---
MS RN CLOSING NOTE: Patient in bed sleeping comfortably. Patient on room air. Breathing unlabored and equal. Shows no signs of distress or SOB. Transfused 1 unit PRBC, 282mL. Patient tolerated transfusion with no adverse effect. Safety measures in place. Bed is in lowest position, side rails x2 are up, and call light is within reach. Will endorse to morning nurse.
--- NOTE | 2020-06-26 06:55 | NUR ---
MS RN NOTE: Patient complains of pain on his back and neck. Patient rates pain 3 on a 0-10 numerical scale. Patient describes pain as aching. Administered PRN Tylenol per order. Will endorse to oncoming nurse.
[2020-06-26 07:04] LABS: CALCIUM, SERUM 8.5 mg/dL (8.5-10.1); CREATININE 1.1 mg/dL (0.6-1.3); MAGNESIUM 1.7 mg/dL (1.8-2.4); PHOSPHORUS 3.8 mg/dL (2.5-4.9); POTASSIUM 3.5 mmol/L (3.5-5.1)
[2020-06-26 07:09] LABS: BASOPHILS % (AUTO) 0.4 % (0.0-2.0); EOSINOPHILS % (AUTO) 2.9 % (0.0-6.0); HEMATOCRIT 27 % (39-51); HEMOGLOBIN 7.9 g/dL (13.5-17.5); LYMPHOCYTES # (AUTO) 1.9 /CMM (0.8-4.8); LYMPHOCYTES % (AUTO) 31.5 % (20.0-44.0); MEAN CORPUSCULAR HGB CONC 29 g/dl (31.0-36.0); MEAN CORPUSCULAR VOLUME 61 fL (80-96); MONOCYTES # (AUTO) 0.6 /CMM (0.1-1.30); MONOCYTES % (AUTO) 10.2 % (2.0-12.0); NEUTROPHILS # (AUTO) 3.2 /CMM (1.8-8.9); PLATELET COUNT (AUTO) 420 /CMM (150-450); RED BLOOD CELL COUNT(AUTO) 4.34 MIL/uL (4.5-6.0); WHITE BLOOD COUNT (AUTO) 5.9 K/uL (4.3-11.0)
--- NOTE | 2020-06-26 07:27 | NUR ---
MS/RN Opening note Patient received from dump truck operator. A/O X4, vital signs stable, no fevers noted. No signs or symptoms of bleeding. Patient educated as to the importance of informing nursing staff if noticing any blood in urine or stool. Pain currently 8/10 (abdominal pain), given norco one tablet by dump truck operator nurse at 0700. Will monitor effectiveness. Safety measures in place, call light within reach. Will continue to monitor and ensure safety.
[2020-06-26 08:00] VITALS: BP 134/67
[2020-06-26] MEDS: PANTOPRAZOLE 40 MG VIAL IV SCH (08:12)
[2020-06-26] MEDS: LamoTRIgine 100 MG TABLET PO SCH (08:12)
[2020-06-26] MEDS ORDERED: SOD FERRIC GLUC 125 MG in IV NS 0.9% 100 ML IV SCH ×2 (09:00→14:00)
[2020-06-26 09:52] LABS: BAND % (MANUAL) 1 % (0.0-5.0); EOSINOPHILS % (MANUAL) 3 % (0-4); LYMPHOCYTES % (MANUAL) 21 % (16-48); MONOCYTES % (MANUAL) 13 % (0-11.0); NEUTROPHILS % (MANUAL) 62 (42-76)
[2020-06-26] MEDS ORDERED: Magnesium 1GM/D5W 100ML PREMIX PIGGYBACK IV ONE (11:00)
--- NOTE | 2020-06-26 11:00 | NUR ---
MS/RN Magnesium Magnesium level 1.7, replaced with 1gm IVPB.
[2020-06-26] MEDS ORDERED: Magnesium 1GM/D5W 100ML PREMIX 100 ML IV SCH (11:30)
--- NOTE | 2020-06-26 11:50 | NUR ---
MS/RN S/B Julian Cameron DNP Seen by DNP - diet to be advanced to mechanical soft, if tolerating for possible discharge later today. Needs to follow up with GI as outpatient.
--- NOTE | 2020-06-26 13:59 | NUR ---
MS/RN Diet Patient tolerating mechanical diet, no pain, nausea or vomiting. Dr Cameron made aware, stating that patient can be discharged to home later this afternoon if able to tolerate regular food. IVF discontinued
--- NOTE | 2020-06-26 14:53 | NUR ---
MS/grab hooker Spoke with Mimi in case management as to regards patient's discharge order. Informed that [facility] as working on finding suitable placement. Addendum: 06/26/20 at 1458 by DAMEON DANG Wrong patient.
--- NOTE | 2020-06-26 14:59 | NUR ---
MS/RN Exit care Exit care prepared, for possible discharge later today.
[2020-06-26 16:00] VITALS: BP 124/71
[2020-06-26 16:20] VITALS: BP 124/71
--- NOTE | 2020-06-26 17:38 | NUR ---
MS/rn infusion Patient to be discharged to home today and to follow up with own GI.
--- NOTE | 2020-06-26 18:12 | NUR ---
MS/tile classifier Patient discharged in stable condition. Exit care prepared and signed by patient, copies of medical record given to patient. Reminded to make follow up appointments with both primary and GI doctors. Heplock and name bands removed, escorted to main lobby by REPAIR TECHNICIAN.
== END 2020-06-26 18:05 | disposition home or self-care (01) | DRG 241 ==
LOC: ER 04:23 → TELE 08:34 → MED 09:39
PROVIDERS: ADMIT Nurse Practitioner Acute Care; ATTEND Nurse Practitioner Acute Care
PROC: 30233N1 Transfusion of Nonautologous Red Blood Cells into Peripheral Vein, Percutaneous Approach (ICD-10-PCS; principal; 2020-06-25)
DX: K29.71 Gastritis, unspecified, with bleeding (principal); D50.9 Iron deficiency anemia, unspecified; K44.9 Diaphragmatic hernia without obstruction or gangrene; G40.909 Epilepsy, unspecified, not intractable, without status epilepticus; K62.89 Other specified diseases of anus and rectum; E83.42 Hypomagnesemia; K51.90 Ulcerative colitis, unspecified, without complications; N20.0 Calculus of kidney; Z82.3 Family history of stroke; Z82.49 Family history of ischemic heart disease and other diseases of the circulatory system; Z83.3 Family history of diabetes mellitus
CPT/HCPCS: 36415; 71045-TC; 80048-TC; 80061-TC; 82728-TC; 83540-TC; 83735-TC; 84100-TC; 84484-TC; 85025-TC; 86850-TC; 86921-TC; 87081-TC; C9113; G0378; J2270; J2916; J3475; J7030; J7040; P9016-BL

== ENCOUNTER 2020-08-13 23:25 | Emergency (ER) | payer OTHER ==
[~2020-08-13 23:25] MED LIST changes: +MESA1.2T3 PO
--- NOTE | 2020-08-14 00:30 | NUR ---
CALLED PT TO BE TRIAGED, NO ANSWER
== END 2020-08-14 00:39 | disposition left against medical advice (07) ==
LOC: ER 23:28
DX: Z53.21 Procedure and treatment not carried out due to patient leaving prior to being seen by health care provider (principal)